=== PATIENT | female | born 1950 | race Caucasian/White ===

== ENCOUNTER 2024-01-22 12:04 | Emergency (ER) | payer MEDICARE, BC, SELFPAY ==
[2024-01-22 12:19] VITALS: BP 127/75; PULSE 74; RESP 16; TEMP 36.4; O2SAT 97; BMI 25.6
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
== END 2024-01-22 13:17 | disposition home or self-care (01) ==
PROVIDERS: Emergency Provider Family Medicine; PCP Physician Assistant
DX: H57.11 Ocular pain, right eye (principal); W51.XXXA Accidental striking against or bumped into by another person, initial encounter
CPT/HCPCS: 99283